=== PATIENT | female | born 1965 | race Caucasian/White ===

== ENCOUNTER 2020-05-26 09:09 | Emergency (ER) | payer SELFPAY ==
--- NOTE | 2020-05-26 10:12 | ER Document Report ---
ED Respiratory Problem - General Chief Complaint: Sinus Congestion Stated Complaint: CONGESTION Time Seen by Provider: 05/26/20 09:29 Primary Care Provider: NADEEM EUBANKS MD [COMMUNITY BASED STAFF] - Follow up as needed Notes: CHIEF COMPLAINT: Congestion and cough for 3 days HPI: 55-year-old female presenting with facial congestion, mild sore throat, slight cough, no definitive fever for the last 3 days. Concerned about Covid. States she is also concerned about pneumonia as she has had this before. No shortness of breath. No chest pain. Has taken no medications for symptoms ROS: See HPI - all other systems were reviewed and are otherwise negative Constitutional: no fever Eyes: no drainage, no blurred vision ENT: no runny nose, + sore throat Cardiovascular: no chest pain Resp: no SOB, + cough GI: no vomiting, no diarrhea, no abdominal pain : no dysuria Integumentary: no rash Allergy: no hives Musculoskeletal: no extremity pain or swelling Neurological: no numbness/tingling, no weakness MEDICATIONS: I agree with the patient medications as charted by the RN. ALLERGIES: I agree with the allergies as charted by the RN. PAST MEDICAL HISTORY/PAST SURGICAL HISTORY: Reviewed and agree as charted by RN. SOCIAL HISTORY: Reviewed and agree as charted by RN. FAMILY HISTORY: No significant familial comorbid conditions directly related to patient complaint EXAM: Reviewed vital signs as charted by RN. CONSTITUTIONAL: Alert and oriented and responds appropriately to questions. Well-appearing; well-nourished HEAD: Normocephalic; atraumatic EYES: PERRL; Conjunctivae clear, sclerae non-icteric ENT: normal nose; no rhinorrhea; moist mucous membranes; pharynx without lesions noted, no uvula edema or deviation, no tonsillar hypertrophy, phonation normal NECK: Supple without meningismus; non-tender; no cervical lymphadenopathy, no masses CARD: RRR; no murmurs, no clicks, no rubs, no gallops; symmetric distal pulses RESP: Normal chest excursion without splinting or tachypnea; breath sounds clear and equal bilaterally; no wheezes, no rhonchi, no rales, pulse oximetry 96% on room air not hypoxic ABD/GI: Normal bowel sounds; non-distended; soft, non-tender, no rebound, no guarding; no palpable organomegaly or masses. BACK: The back appears normal and is non-tender to palpation, there is no CVA tenderness EXT: Normal ROM in all joints; non-tender to palpation; no cyanosis, no eff usions, no edema SKIN: Normal color for age and race; warm; dry; good turgor; no acute lesions noted NEURO: Moves all extremities equally; Motor and sensory function intact PSYCH: The patient's mood and manner are appropriate. Grooming and personal hygiene are appropriate. MDM: 55-year-old female presenting with facial congestion, very slight cough over the last 3 days. Chest x-ray on my review shows questionable infiltrate right lower lobe, awaiting radiology review. She is not dyspneic. No chest pain to suggest ACS. She is concerned about Covid will obtain Covid test she will self quarantine at home pending test results symptomatic treatment return if condition worsens The patient was evaluated during the global COVID-19 pandemic and that diagnosis was suspected/considered upon their initial presentation. Their evaluation, treatment and testing was consistent with current guidelines for patients who present with complaints or symptoms that may be related to COVID-19 - Related Data Home Medications: calcium, levothyroxine, atorvastatin, anastrozole Past Medical History - Social History Smoking Status: Former Smoker Frequency of alcohol use: None Drug Abuse: None Family History: Reviewed & Not Pertinent Patient has homicidal ideation: No Physical Exam - Vital signs Vitals: Temp Pulse Resp BP Pulse Ox 98.1 F 64 16 137/67 H 95 05/26/20 09:15 05/26/20 09:15 05/26/20 09:15 05/26/20 09:15 05/26/20 09:15 Course - Re-evaluation Re-evalutation: 05/26/20 10:22 Radiologist believes there might be an infiltrate in the right lower lung base consistent with pneumonia. Patient is Covid pending, will treat with Zithromax, albuterol - Vital Signs Vital signs: Temp Pulse Resp BP Pulse Ox 98.1 F 64 16 137/67 H 95 05/26/20 09:15 05/26/20 09:15 05/26/20 09:15 05/26/20 09:15 05/26/20 09:15 - Laboratory Results Critical Laboratory Results Reviewed: No Critical Results - Radiology Results Critical Radiology Results Reviewed: No Critical Results Discharge - Discharge Clinical Impression: Person under investigation for COVID-19, Cough Pneumonia Qualifiers: Pneumonia type: due to unspecified organism Laterality: right Lung location: lower lobe of lung Qualified Code(s): J18.9 - Pneumonia, unspecified organism Condition: Stable Disposition: HOME, SELF-CARE Instructions: COVID-19 Guidance for Persons Under Investigation Additional Instructions: Use [id number] medications for cough and congestion. You are considered a person under investigation for COVID-19 at this time self quarantine at home pending your test results. You should receive notification about your test result from the hospital within 2 to 5 days. If you have worsening shortness of breath or concerns return for reevaluation. There was some concern with your chest x-ray that you might have pneumonia on the right side. Take the antibiotics as prescribed, use the albuterol inhaler 2 puffs every 4 hours as needed for any shortness of breath or cough Prescriptions: Albuterol Sulfate [Proair HFA Inhalation Aerosol 8.5 gm MDI] 2 puff IH Q4H PRN #1 mdi PRN Reason: Azithromycin [Zithromax 250 mg Tablet] 250 mg PO ASDIR PRN #6 tablet PRN Reason: Referrals: NADEEM EUBANKS MD [COMMUNITY BASED STAFF] - Follow up as needed
--- NOTE | 2020-05-26 10:21 | RADIOLOGY REPORT (SQ) ---
EXAM DESCRIPTION: CHEST SINGLE VIEW IMAGES COMPLETED DATE/TIME: 05/26/2020 10:13 am REASON FOR STUDY: cough COMPARISON: None. EXAM PARAMETERS: NUMBER OF VIEWS: One view. TECHNIQUE: Single frontal radiographic view of the chest acquired. RADIATION DOSE: NA LIMITATIONS: None. FINDINGS: LUNGS AND PLEURA: Density in the medial right lung base adjacent to the cardiac silhouette . Otherwise clear. No pleural effusion or pneumothorax. MEDIASTINUM AND HILAR STRUCTURES: No masses. Contour normal. HEART AND VASCULAR STRUCTURES: Heart normal in size. Normal vasculature. BONES: No acute findings. HARDWARE: None in the chest. OTHER: No other significant finding. IMPRESSION: SUSPECT PNEUMONIA IN THE MEDIAL RIGHT LUNG BASE. TECHNICAL DOCUMENTATION: JOB ID: [id number] 2010 [employer]- All Rights Reserved Reading location - IP/workstation name: [email or web address]
[2020-05-26 11:00] VITALS: BP 132/84
== END 2020-05-26 10:58 | disposition home or self-care (01) ==
LOC: ER 09:09
DX: J18.9 Pneumonia, unspecified organism (principal); J02.9 Acute pharyngitis, unspecified; R05 Cough; Z79.899 Other long term (current) drug therapy; Z87.891 Personal history of nicotine dependence; Z20.822 Contact with and (suspected) exposure to COVID-19
CPT/HCPCS: 99284; 87635; 71045; C9803; 36415